=== PATIENT | male | born 1980 | race Caucasian/White ===

== ENCOUNTER 2017-12-11 20:01 | Emergency (ER) | payer OTHER ==
[~2017-12-11] VITALS: Ht 177.8 cm; Wt 79.4 kg
[2017-12-11 21:24] VITALS: Ht 177.8 cm; Wt 79.4 kg
[2017-12-11 23:02] LABS: BASOPHIL % 0.6 % (0-2); PLATELET COUNT 340 x10^3mcL (130-400)
[2017-12-11 23:20] LABS: CALCIUM 9.3 mg/dL (8.5-10.1); CARBON DIOXIDE 24.9 mmol/L (21-32); CHLORIDE SERUM 99 mmol/L (98-107); CREATININE SERUM 1.1 mg/dL (0.7-1.3); GFR1 > 60 mL/min; GLUCOSE SERUM 77 mg/dL (74-106); POTASSIUM SERUM 3.2 mmol/L (3.5-5.1); SODIUM SERUM 136 mmol/L (136-145)
[2017-12-11 23:26] LABS: ALBUMIN 4.4 g/dL (3.4-5.0); ALKALINE PHOSPHATASE 69 U/L (46-116); ALT/SGPT 32 U/L (16-63); AST/SGOT 17 U/L (15-37); BILIRUBIN TOTAL 0.6 mg/dL (0.20-1.00); LIPASE 76 IU/L (73-393); TOTAL PROTEIN, SERUM 7.9 g/dL (6.4-8.2)
[2017-12-12 04:05] VITALS: BP 127/84
== END 2017-12-12 04:05 | disposition home or self-care (01) ==
LOC: ED 20:01
PROVIDERS: Emergency Medicine
DX: R07.89 Other chest pain (principal); J44.9 Chronic obstructive pulmonary disease, unspecified; R10.13 Epigastric pain
CPT/HCPCS: 36415; 83880; 85378; J7620